=== PATIENT | male | born 1985 | race American Indian/Alaskan Native ===

== ENCOUNTER 2019-07-14 23:08 | Emergency (ER) | payer SELFPAY ==
--- NOTE | 2019-07-15 00:22 | CT ---
Indication: Head injury, pain Technique: Nonenhanced axial CT imaging through the head. Sagittal and coronal reconstructions are provided. Comparison: None Findings: There is no intracranial hemorrhage, edema, or mass effect. There is normal attenuation of the brain parenchyma. The ventricles are normal in size. The basal cisterns are patent. The calvarium is intact. The visualized paranasal sinuses and mastoid air cells are well aerated. Small soft tissue density in the midline example scalp likely represents a small hematoma. Impression: No acute intracranial process. Please note that all CT scans at this facility use dose modulation, iterative reconstruction, and/or weight-based dosing when appropriate to reduce radiation dose to as low as reasonably achievable. Dictated by Matyt Beth MD @ Jul 15 2019 12:16AM Signed by Dr. Matty Beth @ Jul 15 2019 12:22AM
[2019-07-15] MEDS ORDERED: Lidocaine 1% with EPINEPHrine 1:100,000 10 ML MDV INJECT ONE (00:38)
[2019-07-15] MEDS ORDERED: Lidocaine 1% with EPINEPHrine 1:100,000 20 ML MDV ONE (01:06)
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
== END 2019-07-15 01:55 | disposition home or self-care (01) ==
LOC: MW.ED 23:08
DX: S01.21XA Laceration without foreign body of nose, initial encounter (principal); X58.XXXA Exposure to other specified factors, initial encounter
CPT/HCPCS: 70450; 70450-26; 99283; 99283-25

== ENCOUNTER 2020-02-03 18:53 | Emergency (ER) | payer SELFPAY ==
--- NOTE | 2020-02-03 19:02 | EDM.PDOC ---
ED HPI GENERAL MEDICAL PROBLEM - General Chief Complaint: General Stated Complaint: HEADACHE,HEAD INJURY Time Seen by Provider: 02/03/20 19:00 Source of Information: Reports: Patient History Limitations: Reports: No Limitations - History of Present Illness INITIAL COMMENTS - FREE TEXT/NARRATIVE: 34-year-old male with no past medical history presents with headache. Headache started 4 days ago while he was in detention. Is described as constant, bitemporal tightness sensation, severe in intensity. 3 days ago he fainted and hit his head on the wall with positive LOC in detention. Associated with nausea, vomiting since yesterday, blurry vision. He took Tylenol Extra Strength with no relief. He does not have a PCP. Denies fever, chills, neck pain or neck stiffness, focal numbness or weakness. ROS: A 10-point review of systems, other than pertinent positives and negatives as stated per HPI, is otherwise negative Past medical history: No additional pertinent history Past Surgical history: No additional pertinent history Social history: No additional pertinent history Family history: No additional pertinent history PHYSICAL EXAM General: AOx4, GCS = 15, mild distress HEENT: dry mucous membrane Neck: supple, no meningismus, no Kernig or Brudzinski Cardiac: S1S2 RRR Respiratory: CTAB, no crackles or rales, no wheezing Abdomen: Soft, nontender, no rebound or guarding, nondistended, no pulsatile mass. Back: nontender Musculoskeletal: NVI distally, no deformity Neuro: No focal deficits, CN 2 - 12 WNL. Headache Pain Score (Numeric/FACES): 8 - Related Data Allergies Allergy/AdvReac Type Severity Reaction Status Date / Time No Known Allergies Allergy Verified 02/03/20 19:11 Home Meds: Home Meds Naproxen [Naprosyn] 500 mg PO Q12HR #10 tab 02/03/20 [Rx] Past Medical History - Past Health History Medical/Surgical History: Denies Medical/Surgical History - Infectious Disease History Infectious Disease History: Reports: Chicken Pox Social & Family History - Family History Family Medical History: Noncontributory - Caffeine Use Caffeine Use: Reports: Coffee, Energy Drinks, Soda, Tea ED ROS GENERAL - Review of Systems Review Of Systems: Comprehensive ROS is negative, except as noted in HPI. ED EXAM, GENERAL - Physical Exam Exam: See Below (see dictation) Course - Vital Signs Last Recorded V/S: Last Vital Signs Temp 97.3 F 02/03/20 19:09 Pulse 104 H 02/03/20 19:09 Resp 18 02/03/20 19:09 BP 138/93 H 02/03/20 19:09 Pulse Ox 97 02/03/20 19:09 - Orders/Labs/Meds Orders: Active Orders 24 hr Category Date Time Status Head wo Cont [CT] Stat Exams 02/03/20 19:01 Taken Meds: Medications Discontinued Medications Generic Name Dose Route Start Last Admin Trade Name Freq PRN Reason Stop Dose Admin Diphenhydramine HCl 50 mg 02/03/20 19:27 02/03/20 19:43 Benadryl IM 02/03/20 19:28 50 mg ONETIME ONE Administration Lidocaine HCl 15 ml 02/03/20 19:28 02/03/20 19:43 Xylocaine 2% Viscous TOP 02/03/20 19:29 15 ml ONETIME ONE Administration Metoclopramide HCl 10 mg 02/03/20 19:27 02/03/20 19:43 Reglan IM 02/03/20 19:28 10 mg ONETIME ONE Administration - Re-Assessments/Exams Free Text/Narrative Re-Assessment/Exam: 02/03/20 19:02 After IM reglan benadryl treatments and observation in the ER, his headache resolved, and he is currently stable for discharge. I performed a repeat exam and did not appreciate new abnormal findings. Patient exhibits normal vital signs and has a normal gait. I advised the patient to return to the ER for reevaluation if symptoms worsened, including fever, worsening pain, or any other worrisome symptoms. I instructed the patient to follow up with their PCP within 2-3 days. MEDICAL DECISION MAKING: I reviewed the patients past medical records, lab and radiographic findings. I discussed the case with the patient. My differential diagnosis included: Patients headache is not described as the worst headache of her life, it is not sudden in onset, and not thunderclap in nature. There is no fever, neck pain or stiffness, or focal numbness or weakness. The headache is identical in quality as their previous migraine headache. Headache was improved with reglan, Benadryl. I do not feel the need to pursue additional imaging studies or Lumbar puncture. Departure - Departure Time of Disposition: 20:31 Disposition: Home, Self-Care 01 Condition: Good Clinical Impression: Headache - Discharge Information *PRESCRIPTION DRUG MONITORING PROGRAM REVIEWED*: Not Applicable *COPY OF PRESCRIPTION DRUG MONITORING REPORT IN PATIENT FERNANDO: Not Applicable Prescriptions: Naproxen [Naprosyn] 500 mg PO Q12HR #10 tab Instructions: General Headache Without Cause Referrals: PCP,None [Primary Care Provider] - 3 Days Forms: ED Department Discharge Additional Instructions: The following information is given to patients seen in the emergency department who are being discharged to home. This information is to outline your options for follow-up care. We provide all patients seen in our emergency department with a follow-up referral. The need for follow-up, as well as the timing and circumstances, are variable depending upon the specifics of your emergency department visit. If you don't have a primary care physician on staff, we will provide you with a referral. We always advise you to contact your personal physician following an emergency department visit to inform them of the circumstance of the visit and f or follow-up with them and/or the need for any referrals to a consulting specialist. The emergency department will also refer you to a specialist when appropriate. This referral assures that you have the opportunity for follow-up care with a specialist. All of these measure are taken in an effort to provide you with optimal care, which includes your follow-up. Under all circumstances we always encourage you to contact your private physician who remains a resource for coordinating your care. When calling for follow-up care, please make the office aware that this follow-up is from your recent emergency room visit. If for any reason you are refused follow-up, please contact the [facility] Emergency Department at and asked to speak to the emergency department charge nurse. If you do not have a primary care doctor, please follow up with the clinics below within 3-5 days. Emily Weston [facility] [address] [place] [id number] [facility] [address] [place] [address] Sepsis Event Note (ED) - Focused Exam Vital Signs: Vital Signs Temp Pulse Resp BP Pulse Ox 02/03/20 19:09 97.3 F 104 H 18 138/93 H 97 - My Orders Last 24 Hours: My Active Orders 02/03/20 19:01 Head wo Cont [CT] Stat - Assessment/Plan Last 24 Hours: My Active Orders 02/03/20 19:01 Head wo Cont [CT] Stat
[2020-02-03] MEDS ORDERED: diphenhydrAMINE 50 MG/ML SDV IM ONE (19:27)
[2020-02-03] MEDS ORDERED: Metoclopramide 10 MG/2 ML SDV IM ONE (19:27)
[2020-02-03] MEDS ORDERED: Lidocaine 2% Viscous Solution 15 ML Cup TOP ONE (19:28)
--- NOTE | 2020-02-06 14:10 | CT ---
EXAM DATE: 02/03/20 PATIENT'S AGE: 34 Patient: ANN ALBERT Facility: [facility] Site . Site : 1985 Study: CT-Head -02/03/2020 7:45:46 PM Ordering Physician: GLORIA PATTERSON MD Final Report: INDICATION: Head injury COMPARISON: 07/14/2019 TECHNIQUE: CT examination of the head was performed as axial sections without intravenous contrast. Images were obtained from the vertex of the skull through the skull base. Please note that all CT scans at this facility use dose modulation, iterative reconstruction, and/or weight-based dosing when appropriate to reduce radiation dose to as low as reasonably achievable. FINDINGS: The brain shows no sign of mass lesion, mass effect, hemorrhage, or edema. The ventricles and sulci are normal in appearance for the patient`s age. The visualized portions of the orbits are normal in appearance. The osseous structures are normal in their appearance with no sign of abnormality in the skull base or calvarium. IMPRESSION: Normal unenhanced head CT. Please note that all CT scans at this facility use dose modulation, iterative reconstruction, and/or weight-based dosing when appropriate to reduce radiation dose to as low as reasonably achievable. Dictated by Hermilo Coburn MD @ Feb 03 2020 8:15PM Signed by: Hermilo Coburn MD @02/03/2020 8:17:57 PM (Electronic Signature) Report Signed by Proxy. [facility]
== END 2020-02-03 20:58 | disposition home or self-care (01) ==
LOC: MW.ED 18:53
DX: R51 Headache (principal)
CPT/HCPCS: 70450; 96372; 99284; A9270; J1200; J2765; 99283

== ENCOUNTER 2020-03-05 01:22 | Emergency (ER) | payer SELFPAY ==
--- NOTE | 2020-03-05 02:11 | EDM.PDOC ---
ED HPI GENERAL MEDICAL PROBLEM - General Chief Complaint: General Stated Complaint: MEDICAL CLEARANCE Time Seen by Provider: 03/05/20 01:46 Source of Information: Reports: Police History Limitations: Reports: No Limitations - History of Present Illness INITIAL COMMENTS - FREE TEXT/NARRATIVE: 34 yo M was brought in by police for medical clearance prior to incarceration. Patient has no physical complaints. Patient denies fever, headache, nausea, vomiting, diarrhea, chest pain, shortness of breath, abdominal pain. He has a heel wound dressed by PD. ROS: A 10-point review of systems, other than pertinent positives and negatives as stated per HPI, is otherwise negative Past medical history: No additional pertinent history Surgical history: No additional pertinent history Social history: No additional pertinent history Family history: No additional pertinent history PHYSICAL EXAM General: AOx4, GCS = 15, No distress HEENT: dry mucous membrane Neck: supple, no meningismus, no Kernig or Brudzinski Cardiac: S1S2 RRR Respiratory: CTAB, no crackles or rales, no wheezing Abdomen: Soft, nontender, no rebound or guarding, nondistended, no pulsatile mass. Back: nontender Musculoskeletal: NVI distally, no deformity, heel skin ulcer, no erythema or drainage. Neuro: No focal deficits, CN 2 - 12 WNL. MEDICAL DECISION MAKING: Patient has no physical complaints today, patient exhibits normal vital signs, I do not suspect organic etiology warranting additional blood work or imaging studies. His heel wound was dressed with wet to dry dressing. Patient is medically cleared to be discharged under police custody. - Related Data Allergies Allergy/AdvReac Type Severity Reaction Status Date / Time No Known Allergies Allergy Verified 03/05/20 01:55 Home Meds: Home Meds . [No Known Home Meds] 03/05/20 [History] Past Medical History - Past Health History Medical/Surgical History: Denies Medical/Surgical History - Infectious Disease History Infectious Disease History: Reports: Chicken Pox Social & Family History - Family History Family Medical History: Noncontributory - Tobacco Use Smoking Status *Q: Never Smoker - Caffeine Use Caffeine Use: Reports: Coffee, Energy Drinks, Soda, Tea - Recreational Drug Use Recreational Drug Use: No ED ROS GENERAL - Review of Systems Review Of Systems: Comprehensive ROS is negative, except as noted in HPI. ED EXAM, GENERAL - Physical Exam Exam: See Below (see dictation) Course - Vital Signs Last Recorded V/S: Last Vital Signs Temp 97.2 F 03/05/20 01:44 Pulse 79 03/05/20 01:44 Resp 16 03/05/20 01:44 BP 124/87 03/05/20 01:44 Pulse Ox 99 03/05/20 01:44 Departure - Departure Time of Disposition: 02:10 Disposition: DC/Tfer to Court of Law En 21 Condition: Good Clinical Impression: Heel ulcer - Discharge Information *PRESCRIPTION DRUG MONITORING PROGRAM REVIEWED*: Not Applicable *COPY OF PRESCRIPTION DRUG MONITORING REPORT IN PATIENT FERNANDO: Not Applicable Referrals: PCP,None [Primary Care Provider] - Additional Instructions: The need for follow-up, as well as the timing and circumstances, are variable depending upon the specifics of your emergency department visit. If you don't have a primary care physician on staff, we will provide you with a referral. We always advise you to contact your personal physician following an emergency department visit to inform them of the circumstance of the visit and for follow-up with them and/or the need for any referrals to a consulting specialist. The emergency department will also refer you to a specialist when appropriate. This referral assures that you have the opportunity for follow-up care with a specialist. All of these measure are taken in an effort to provide you with optimal care, which includes your follow-up. Under all circumstances we always encourage you to contact your private physician who remains a resource for coordinating your care. When calling for follow-up care, please make the office aware that this follow-up is from your recent emergency room visit. If for any reason you are refused follow-up, please contact the [facility] at and asked to speak to the emergency department charge nurse. If you do not have a primary care doctor, please follow up with the clinics below within 3-5 days. [facility] - Primary [facility] [address] [place] [id number] [facility] [address] [place] [id number] Sepsis Event Note (ED) - Evaluation Sepsis Screening Result: No Definite Risk - Focused Exam Vital Signs: Vital Signs Temp Pulse Resp BP Pulse Ox 03/05/20 01:44 97.2 F 79 16 124/87 99
== END 2020-03-05 02:25 ==
LOC: MW.ED 01:22
DX: L97.409 Non-pressure chronic ulcer of unspecified heel and midfoot with unspecified severity (principal)
CPT/HCPCS: 99282; 99283